=== PATIENT | female | born 1975 | race Two or more races ===

== ENCOUNTER 2017-05-18 22:37 | Emergency (ER) | payer SELFPAY ==
[~2017-05-18] VITALS: Ht 160 cm; Wt 77.1 kg
[2017-05-18 22:44] VITALS: BP 124/82
[2017-05-18 23:07] LABS: APPEARANCE,URINE CLEAR (CLEAR); BILIRUBIN,URINE NEGATIVE (NEGATIVE); BLOOD, URINE 3+ Ery/uL (NEGATIVE); KETONES,URINE NEGATIVE (NEGATIVE); LEUKOCYTE ESTERASE ,URINE 1+ (NEGATIVE); NITRITE, URINE NEGATIVE (NEGATIVE); PH,URINE 6.5 (5.0-8.0); PROTEIN,URINE NEGATIVE (NEGATIVE); UGLUCOSE NEGATIVE (NEGATIVE); UROBILINOGEN,URINE 0.2 EU/dL (0.2)
[2017-05-18 23:08] LABS: COLOR,URINE Light yellow (YELLOW)
[2017-05-18 23:16] LABS: BACTERIA,URINE 1+ /HPF (None Seen); SQUAMOUS EPITHELIAL CELL,UR Few /HPF (None Seen)
[2017-05-18 23:17] LABS: WBC,URINE 25-35 /HPF (0-3)
== END 2017-05-18 23:47 | disposition home or self-care (01) ==
LOC: ER 22:38
DX: N12 Tubulo-interstitial nephritis, not specified as acute or chronic (principal)
CPT/HCPCS: 81001; 84703; 87077; 87086; 87186; 99284; A4606; Z7610; 81000-TC